=== PATIENT | male | born 1960 | race Caucasian/White ===

== ENCOUNTER 2019-09-09 17:47 | Inpatient (IN) | payer OTHER ==
[~2019-09-09] VITALS: Ht 170.2 cm; Wt 90.7 kg
[2019-09-09] MEDS ORDERED: SODIUM CHLORIDE 0.9% 1000ML 1,000 ML IV STA (17:57)
[2019-09-09] MEDS ORDERED: ONDANSETRON HCL INJ 2MG/ML 2ML 2 MG/ML VIAL IV ONE (18:00)
[2019-09-09] MEDS ORDERED: KETOROLAC TROMETHAMINE 30 MG/ML VIAL IV ONE (18:00)
[2019-09-09] MEDS ORDERED: ACETAMINOPHEN 325 MG TAB PO ONE (18:00)
[2019-09-09] MEDS ORDERED: KETOROLAC TROMETHAMINE 30 MG/ML VIAL ONE (18:27)
[2019-09-09] MEDS ORDERED: ACETAMINOPHEN 325 MG TAB ONE (18:27)
[2019-09-09] MEDS ORDERED: ONDANSETRON HCL INJ 2MG/ML 2ML 2 MG/ML VIAL ONE (18:27)
[2019-09-09] MEDS ORDERED: SODIUM CHLORIDE 0.9% 1000ML 1,000 ML ONE (18:27)
[2019-09-09] MEDS ORDERED: CEFTRIAXONE SOD 2 GM/NS 100 ML 100 ML IV ONE (18:30)
[2019-09-09] MEDS ORDERED: CEFTRIAXONE SOD 1 GM VIAL IV ONE (18:30)
--- NOTE | 2019-09-09 18:50 | Emergency Department Note ---
History of Present Illnes History of Present Illness Chief Complaint: General Medicine Complaints History of Present Illness This is a 58 year old male history of HTN c/o f/c, SOB, chest pain, upper back pain for 2-3 days . Historian: Patient Arrival Mode: Car Web Ui Software Engineer Required: No Onset (how long ago): day(s) (2-3 days) Radiation: back, neck Severity: moderate Duration (how long): day(s) Timing of current episode: intermittent Progression: waxing and waning Relieving factors: none Exacerbating factors: none Associated symptoms: chest pain, cough, fever/chills, headaches, malaise, shortness of breath Treatments prior to arrival: none Past Medical/Family History Physician Review I have reviewed the patient's past medical and family history. Any updates have been documented here. Past Medical History Recent Fever: No Clinical Suspicion of Infectio: Yes Past Medical History: Hypertension, GERD Other Medical History: IBS Social History Smoking Cessation: Former smoker Counseling Performed: No Alcohol Use: None Any Illegal Drug Use: No TB Exposure/Symptoms: No Family History Family history of heart diseas: No Other Any Pre-Existing Lines (PICC,: No Review of Systems Review of Systems Constitutional: chills, fever, malaise, weakness EENTM: no symptoms Cardiovascular: chest pain Respiratory: cough, pain with cough Gastrointestinal: other (chronic abdominal pain) Genitourinary: no symptoms Musculoskeletal: back pain, neck pain Neurological: no symptoms Psychological: no symptoms Endocrine: no symptoms Hematological/Lymphatic: no symptoms Review of other systems All other systems reviewed and negative. Physical Exam Related Data Allergies: Coded Allergies: Penicillins (Verified Allergy, Severe, swelling severe, 09/09/19) Iodinated Contrast Media (Verified Adverse Reaction, Mild, vomiting with fast push only, 09/09/19) pt states that he has vomiting with fast push only, no other rx Vital signs reviewed: Yes Physical Exam CONSTITUTIONAL Constitutional: well-developed, well-nourished, obese HENT HENT: normocephalic, atraumatic, oropharynx clear/moist, nose normal HENT L/R: left ext ear normal, right ext ear normal EYES Eyes: PERRL, conjunctivae normal NECK Neck: ROM normal, supple, other (Negative for Kernig and Brudzinski signs) PULMONARY Pulmonary: effort normal, breath sounds normal CARDIOVASCULAR Cardiovascular: regular rhythm, heart sounds normal, capillary refill normal, normal rate GASTROINTESTINAL Abdominal: soft, nontender, bowel sounds normal, other (obese) GENITOURINARY Genitourinary: exam deferred SKIN Skin: warm, dry MUSCULOSKELETAL Musculoskeletal: ROM normal NEUROLOGICAL Neurological: alert, oriented x 3, no gross motor or sensory deficits PSYCHOLOGICAL Psychological: mood/affect normal, judgement normal Results Laboratory Lab results reviewed: Yes Laboratory comments CBC ok, CMP ok, BNP normal, flu neative. D-dimer slightly elevated, doubt PE clinically, Trop I ok, CKMB ok. Covid 19 pending lactic acid level 2.19 slightly elevated Imaging Imaging results reviewed: Yes Impressions no pneumonia Diagnostics Tests Diagnostic test(s) reviewed: Yes Procedures 12 Lead ECG Interpretation Web Ui Software Engineer: Interpreted by ED physician Date: September 09, 2019 Time: 17:57 Prior BASTER HAND tracings: reviewed Rhythm: sinus rhythm Rate: normal QRS axis: normal ST segments normal: Yes T waves normal: Yes Clinical Impression: normal ECG Critical Care Time Subsequent provider I assumed direction of critical care for this patient from another provider of my specialty. Assessment & Plan Assessment & Plan Problems: (1) Sepsis (2) Chest pain (3) SOB (shortness of breath) (4) Fever Reassessment Reassessment comfortable, no SOB, will place in observation since pt met criteria for moderate to sever sepsis. case discussed with Dr Holt volume reassessment done, pt is not in septic shock, he does not need IV fluid at 30cc/kg as per sepsis protocol. He is not coughing at all for all the time he is here and he will wear face mask so I do not think he need to be on droplet isolation Depart Disposition: ADMITTED Home Meds Reported Medications Multivitamin (MULTI-VITAMIN DAILY) 1 Each Tablet, DAILY 09/09/19 Fexofenadine Hcl (JOSÉ ALLERGY) 60 Mg Tablet, DAILY@0600 THERAPEUTICALLY SUBSTITUTED WITH CLARITIN 10MG 09/09/19 Bifidobacterium Infantis (ALIGN) 4 Mg Capsule 09/09/19 Atenolol (ATENOLOL) 50 Mg Tablet, 25 MG PO DAILY 09/09/19 Famotidine (FAMOTIDINE) 20 Mg Tab, 20 MG PO BID, #30 TAB 09/09/19 Hyoscyamine Sulfate (HYOSCYAMINE SULFATE) 0.375 Mg Tab.er.12h, 0.125 MG PO TID PRN for CRAMPS, TAB 09/09/19 Dicyclomine Hcl (DICYCLOMINE HCL) 20 Mg Tablet, 20 MG PO TID, TAB 09/09/19 Medications in the ED Ketorolac Tromethamine 30 mg ONCE ONCE IV ; Start 09/09/19 at 18:00; Stop 09/09/19 at 18:28; Status DC Ondansetron HCl 4 mg ONCE ONCE IV ; Start 09/09/19 at 18:00; Stop 09/09/19 at 18:01 Sodium Chloride 1,000 ml @ 0 mls/hr Q0M STAT IV ; Start 09/09/19 at 17:57; Stop 09/09/19 at 17:58 Acetaminophen 650 mg ONCE ONCE PO ; Start 09/09/19 at 18:00; Stop 09/09/19 at 18:28; Status DC Ceftriaxone Sodium 2 gm ONCE ONCE IV ; Start 09/09/19 at 18:30; Stop 09/09/19 at 18:31; Status UNV Ceftriaxone Sodium 100 ml @ 100 mls/hr ONCE ONCE IV ; Start 09/09/19 at 18:30; Stop 09/09/19 at 19:29 Ondansetron HCl 4 mg STK-MED ONCE .ROUTE ; Start 09/09/19 at 18:27; Stop 09/09/19 at 18:22; Status DC Ketorolac Tromethamine 30 mg STK-MED ONCE .ROUTE ; Start 09/09/19 at 18:27; Stop 09/09/19 at 18:22; Status DC Acetaminophen 650 mg STK-MED ONCE .ROUTE ; Start 09/09/19 at 18:27; Stop 09/09/19 at 18:22; Status DC Sodium Chloride 1,000 ml @ ud STK-MED ONCE .ROUTE ; Start 09/09/19 at 18:27; Stop 09/09/19 at 18:22; Status DC ESTHELA RIBERA MD September 09, 2019 18:50
[2019-09-09] MEDS ORDERED: CEFTRIAXONE SOD 1 GM VIAL ONE (19:05)
[2019-09-09] MEDS ORDERED: FAMOTIDINE20 MG PO (19:08)
[2019-09-09] MEDS ORDERED: DICYCLOMINE HCL20 MG PO (19:08)
[2019-09-09] MEDS ORDERED: MULTI-VITAMIN1 EACH (19:08)
[2019-09-09] MEDS ORDERED: ALIGN4 MG (19:08)
[2019-09-09] MEDS ORDERED: ALLEGRA ALLERGY60 MG (19:08)
[2019-09-09] MEDS ORDERED: ATENOLOL50 MG PO (19:08)
[2019-09-09] MEDS ORDERED: HYOSCYAMINE0.375 MG PO (19:08)
--- NOTE | 2019-09-09 19:08 | Diagnostic Imaging Report ---
EXAMINATION: PA and lateral views of the chest. COMPARISON: None CLINICAL HISTORY: Fever, shortness of breath, chest pain for 3 days DISCUSSION: Lines/tubes: None. Lungs: The lungs are well inflated and grossly clear. There is no evidence of consolidation or pulmonary edema. Pleura: There is no pleural effusion or pneumothorax. Heart and mediastinum: Cardiomediastinal silhouette is unremarkable. Pulmonary vasculature is normal. Bones and soft tissues: No acute bony abnormalities. Mild degenerative changes in the thoracic spine IMPRESSION: No acute cardiopulmonary abnormalities. Signed by: Dr. Roberto Morgan M.D. on 09/09/2019 7:05 PM
--- NOTE | 2019-09-09 19:13 | NUR ---
report to RAMÓN Landis
[2019-09-09] MEDS ORDERED: DIPHENHYDRAMINE HCL INJ 50 MG/ML VIAL IV PRN (19:45)
[2019-09-09] MEDS ORDERED: AZITHROMYCIN 500MG/SOD CHL 0.9% 250ML BAG IV SCH (19:45)
[2019-09-09] MEDS ORDERED: PROMETHAZINE 25MG/ NS 50ML (IV) IV PRN (19:45)
--- OUTSIDE RECORDS SUMMARY | 2019-09-09 20:12 | XMS REPORT ---
Author Author [facility] t Organization [facility] Address [address] [place] [address] [address]. [address] [place] [address] Phone Unavailable Care Team Providers Care [employer] Judge Name Role Phone Edelmira RIBERA Attphys Unavailable Problems This patient has no known problems. Allergies, Adverse Reactions, Alerts This patient has no known allergies or adverse reactions. Social History Social Habit Start Date Stop Date Quantity Comments Source Sex Assigned At [facility] Medications This patient has no known medications. Procedures This patient has no known procedures. Results Test Description Test Time Test Comments Results Result Comments Source CXR 2 VIEW - HOPD 2019-09-09 19:04:00 [place] [address] Patient Name: TARYN MUNOZ PARAS MR #: [id number] : 1960 Age/Sex: 58/M Req #: [id number] Adm Physician: Ordered by: ESTHELA RIBERA MD Report #: [id number] Location: [facility] Room/Bed: Procedure: [id number] HOPD/CXR 2 VIEW - HOPD Exam Date: 09/09/19 Exam Time: 1850 REPORT STATUS: Signed EXAMINATION: PA and lateral views of the chest. COMPARISON: None CLINICAL HISTORY: Fever, shortness of breath, chest pain for 3 days DISCUSSION: Lines/tubes: None. Lungs: The lungs are well inflated and grossly clear. There is no evidence of consolidation or pulmonary edema. Pleura: There is no pleural effusion or pneumothorax. Heart and mediastinum: Cardiomediastinal silhouette is unremarkable. Pulmonary vasculature is normal. Bones and soft tissues: No acute bony abnormalities. Mild degenerative changes in the thoracic spine IMPRESSION: No acute cardiopulmonary abnormalities. Signed by: Dr. Balbina Morgan M.D. on 09/09/2019 7:05 PM Dictated By: BALBINA MORGAN MD 04 Transcribed By: GRETCHEN on 09/09/191904 COPY TO: ESTHELA RIBERA MD
--- OUTSIDE RECORDS SUMMARY | 2019-09-09 20:12 | XMS REPORT | Clinical Summary ---
Author Author [facility] Address Unknown Phone Unavailable Care Team Providers Care Director Integrated Name Role Phone PCP Unavailable Allergies Not on File Medications Not on file Active Problems Not on file Social History Date Tobacco Use Types Packs/Day Years Used Never Assessed Sex Assigned at Date Recorded Not on file Industry Job Start Date Occupation Not on file Not on file Not on file Travel End Travel History Travel Start No recent travel history available. Last Filed Vital Signs Not on file Plan of Treatment Not on file Results Not on fileafter 09/08/2018
[2019-09-09] MEDS ORDERED: PROMETHAZINE 25MG/SOD CHL 0.9% 50 ML IV PRN (20:15)
[2019-09-09] MEDS: AZITHROMYCIN 500MG/NS 250 ML 250 ML IV SCH (20:45)
[2019-09-09] MEDS: SODIUM CHLORIDE 0.9% 1000ML 1,000 ML IV SCH (20:45)
[2019-09-09] MEDS ORDERED: AZITHROMYCIN 500MG/NS 250 ML 250 ML ONE (20:50)
[2019-09-09] MEDS ORDERED: ZOLPIDEM TARTRATE 5 MG TAB PO PRN (21:00)
[2019-09-09] MEDS: FAMOTIDINE 20 MG/2 ML VIAL IV SCH (21:00)
[2019-09-10] VITALS (10 sets, daily range): BP systolic 107–135; BP diastolic 58–76
[2019-09-10] MEDS: SODIUM CHLORIDE 0.9% 1000ML 1,000 ML IV SCH ×3 (00:30→19:45)
[2019-09-10 05:24] LABS: BASOPHILS % 0.5 % (0.0-1.0); EOSINOPHILS % 0.3 % (0.0-6.0); HEMATOCRIT 43.3 % (38.2-49.6); HEMOGLOBIN 14.4 g/dL (14.0-18.0); LYMPHOCYTES # (AUTO) 0.9 (1.0-3.2); LYMPHOCYTES % 14.5 % (18.0-39.1); MEAN CORPUSCULAR HEMOGLOBIN 28.6 pg (28-32); MEAN CORPUSCULAR HGB CONC 33.3 g/dL (31-35); MEAN CORPUSCULAR VOLUME 85.9 fL (81-99); MONOCYTES % 14.8 % (4.4-11.3); NEUTROPHILS # (AUTO) 4.5 (2.1-6.9); NEUTROPHILS % 69.4 % (38.7-80.0); PLATELET COUNT 167 x10e3/uL (140-360); RED BLOOD COUNT 5.04 x10e6/uL (4.3-5.7); RED CELL DISTRIBUTION WIDTH 13.3 % (11.7-14.4)
[2019-09-10 05:51] LABS: CREATINE KINASE 221 IU/L (30-200)
[2019-09-10 06:23] LABS: BLOOD UREA NITROGEN 12 mg/dL (7-26); BUN/CREATININE RATIO 15 (6-25); CALCIUM 8.7 mg/dL (8.4-10.2); CARBON DIOXIDE 23 mmol/L (22-29); CHLORIDE 106 mmol/L (98-107); CREATININE, SERUM 0.82 mg/dL (0.72-1.25); EST GLOMERULAR FILTRATION RATE > 60 ML/MIN (60-); GLUCOSE 103 mg/dL (74-118); SODIUM 138 mmol/L (136-145)
--- NOTE | 2019-09-10 06:35 | NUR ---
CALLED AND SPOKE TO DR HAIDER, PATIENT HAS LOW GRADE FEVER, LET THE MD KNOW PATIENT STATED HE DOES NOT TAKE ANY MEDS FOR FEVER OR PAIN SINCE HAD IBS. NO NEW ORDER OBTAINED.
--- NOTE | 2019-09-10 07:00 | NUR ---
bedside rounds complete no distress noted, updated on poc voiced understanding, denies pain at this time, call light in reach will continue to monitor
--- NOTE | 2019-09-10 08:00 | NUR ---
spoke with dr jenni park: fever, isolation order and consult for Dr. reynoso, orders received, pt with 101 fever pt states he cannot take tylenol or ibuprofen md informed, no new orders at this time, pt given wet rag for head, temperature turned down, will continue to monitor
[2019-09-10] MEDS: FAMOTIDINE 20 MG/2 ML VIAL IV SCH (08:46)
[2019-09-10] MEDS: CEFTRIAXONE SOD 1 GM/NS 50 ML 50 ML IV SCH (08:46)
--- NOTE | 2019-09-10 10:00 | NUR ---
pt transferred to 185 under isolation
--- NOTE | 2019-09-10 11:23 | NUR ---
labs drawn as per ordered
--- NOTE | 2019-09-10 11:24 | NUR ---
consult [id number]
[2019-09-10 11:43] LABS: CREATINE KINASE 228 IU/L (30-200)
[2019-09-10] MEDS ORDERED: HYOSCYAMINE 0.375 MG TABCR PO PRN (12:15)
[2019-09-10] MEDS: LORATADINE 10 MG TAB PO SCH (12:15)
[2019-09-10] MEDS ORDERED: HYOSCYAMINE 0.125 MG TAB PO PRN (13:30)
--- NOTE | 2019-09-10 13:40 | NUR ---
report called to receiving nurse, pt transferred to rm 203 with all belongings, pt left in stable condition
--- NOTE | 2019-09-10 14:00 | NUR ---
pt arrived to unit resp even and unlabored, no distress noted, pt vital signs stable, pt oriented to room and call light.
--- NOTE | 2019-09-10 14:49 | NUR ---
call to Dr. Holt about pt temperature, 102.3 pt is aware and doesn't want Tylenol or ibuprofen. Dr. Holt was notified.
--- NOTE | 2019-09-10 15:10 | NUR ---
retake of pt temperature 101.1 pt alert resp even and unlabored, no c/o pain, pt states he cant take Tylenol nor ibuprofen, and he is trying to reach his regular Doctor to see if he van take Tylenol. pt states its because of his IBS. will cont. to monitor.
[2019-09-10] MEDS: DICYCLOMINE HCL 20 MG TAB PO SCH ×2 (16:25→20:50)
[2019-09-10] MEDS: FAMOTIDINE 20 MG TAB PO SCH (16:25)
--- NOTE | 2019-09-10 18:12 | Diagnostic Imaging Report ---
Perfusion Lung Scan NOTE: Lung ventilation studies with xenon are not being performed per the recommendation of the Society of Nuclear Medicine and Molecular Imaging. It is not possible to be certain that the ventilation system is adequately disinfected. Ventilation studies with Tc-99m DTPA particles is contraindicated because the delivery by nebulization generates too many water droplets from the patient's airway. Clinical Information: 58 M with CP, fever, sepsis, SOB. Comparison: Chest radiograph 09/09/2019 Discussion: Ventilation images were not obtained. See note above. Perfusion images of the lungs were obtained in multiple projections following intravenous administration of approximately 6.4 mCi of Tc-99m MAA. Distribution of tracer appears physiologic throughout the lungs. There are no segmental perfusion defects of any size. The cardiomediastinal silhouette is unremarkable. Impression: Normal perfusion lung scan. Scan findings represent a VERY LOW probability for acute pulmonary embolic disease based on the PIOPED II criteria. Signed by: Dr. Josselin Mooney M.D. on 09/10/2019 6:08 PM
--- NOTE | 2019-09-10 18:36 | Consultation ---
DATE OF CONSULTATION: HISTORY OF PRESENT ILLNESS: Mr. Zhou is a very pleasant 58-year-old, no past medical history, comes into the emergency room with some chest discomfort, not feeling well. He has been sick for a couple of weeks. No specific fever, but he felt feverish, exertional shortness of breath. No specific trauma, came to emergency room. In emergency room he has been evaluated. His COVID-19 came back negative. His white count was 6.49, hemoglobin 14, hematocrit of 43. Sodium 138, potassium 4.0. The patient was seen and examined. Discussed with Internal Medicine. Discussed with medical team. REVIEW OF SYSTEMS: Otherwise unremarkable. PHYSICAL EXAMINATION: GENERAL: He is currently alert, oriented, does not seem in acute distress. VITAL SIGNS: Stable. Currently afebrile. HEENT: He is not icteric. NECK: Supple. Chest few crackles bilateral. COR: S1 and S2. No S3, S4, or murmur. ABDOMEN: Soft. Bowel sounds present. No tenderness. EXTREMITIES: No edema. SKIN: No rash. IMPRESSION: Shortness of breath, cough, chest x-ray is negative. Concern pneumonia active recall versus PE versus cardiac. Recommend to obtain CT of the chest, V/Q to rule out the PE, echocardiogram. We will put the patient on Rocephin and azithromycin. Await blood cultures. Recheck in the morning. Recheck CBC. Further recommendations to follow. MD SPARKLE Dow/LEYLA /[id number]
[2019-09-10] MEDS ORDERED: CEFTRIAXONE SOD 1 GRAM/0.9% SOD CHL 50ML BAG IV SCH (19:00)
--- NOTE | 2019-09-10 19:15 | NUR ---
Bedside nursing report complete with morning nurse. Pt alert and orient. Denies pain at this time. Call light within reach.
--- NOTE | 2019-09-10 19:30 | NUR ---
walking round complete pt stable at shift change.
[2019-09-10] MEDS: AZITHROMYCIN 500MG/NS 250 ML 250 ML IV SCH (20:30)
[2019-09-11] VITALS (8 sets, daily range): BP systolic 106–125; BP diastolic 64–81
[2019-09-11] MEDS: LORATADINE 10 MG TAB PO SCH (06:00)
[2019-09-11] MEDS: SODIUM CHLORIDE 0.9% 1000ML 1,000 ML IV SCH ×3 (06:07→19:23)
--- NOTE | 2019-09-11 06:28 | NUR ---
Filled in patient visitor for. Pt denies any complaints at this time. No acute distress noted.
--- NOTE | 2019-09-11 07:00 | NUR ---
RCD PT AT BED PT IS ALERT AND ORIENTED RESTING ON BED IV PATENT BED LOW AND LOCKED CALL LIGHT IN REACH
[2019-09-11] MEDS: FAMOTIDINE 20 MG TAB PO SCH ×2 (07:30→16:30)
[2019-09-11] MEDS: MULTIVITAMINS/MINERALS TAB PO SCH (09:00)
[2019-09-11] MEDS: CEFTRIAXONE SOD 1 GM/NS 50 ML 50 ML IV SCH (09:00)
[2019-09-11] MEDS: DICYCLOMINE HCL 20 MG TAB PO SCH ×3 (09:00→19:37)
[2019-09-11] MEDS: ATENOLOL 50 MG TAB PO SCH (09:00)
--- NOTE | 2019-09-11 12:13 | Progress Note ---
DATE: SUBJECTIVE: The patient is seen and evaluated. Available labs and notes reviewed. Discussed with the patient, discussed with the nurse. REVIEW OF SYSTEMS: Fever improved per my discussion with the patient , his temperature is about 98 degrees this morning. No nausea, vomiting, fever, chills, chest pain, and shortness of breath has improved. Still has occasional cough. PHYSICAL EXAMINATION: VITAL SIGNS: Temperature 98.7 with a T-max of 103.0 yesterday afternoon about 4 o'clock, also had 102.2 temperature at midnight. Pulse is 74, respirations 16, and blood pressure 120/81. GENERAL: Alert and oriented, in no acute distress. CV: S1, S2. CHEST: Equal expansion. Decreased breath sounds with more diminished on the left. ABDOMEN: Soft and nontender. No distention. HEENT: Moist. No pallor. No JVD. Still has cough during my conversation. MEDICATIONS: The patient is on Rocephin and Zithromax. IMAGING: V/Q scan showed normal perfusion lung scan. Scan finding presents a very low probability for acute pulmonary embolism. Chest x-ray of 09/08 showed no acute cardiopulmonary abnormalities. Microbiology, blood culture 09/08 is negative. Urine culture 09/08 is negative. Recheck blood culture pending. LABORATORY STUDIES: White count of 6.49, hemoglobin 14.4, platelet 167. Sodium 138, potassium 4, creatinine 0.82. Serology; coronavirus PCR 09/09/2019, not detected. ASSESSMENT AND PLAN: Shortness of breath. Chest x-ray is negative concerning pneumonia. V/Q scan is negative. Chest CT is pending. Continue with antibiotic as above. Echocardiogram showed 55% ejection fraction. Trace mitral and tricuspid valve regurgitation. Fever improved clinically. No acute distress. Cultures are all negative so far. A lengthy discussion with the patient, he states he had the same episode back in 1990 and also in March of 1994 that continued till May of 1994 with the same episodes of fever and cough, which workup did not yield any findings. The patient was treated with IV antibiotics at home back then. Currently, monitor the patient clinically and follow with the labs. This case was discussed with Dr. Grant in details. Please refer to chart for more information. Dictated by Alvaro Goldstein PA-C (Al) MD KLAUS Dow/LEYLA /[id number]
--- NOTE | 2019-09-11 12:15 | NUR ---
AC TO RADIOLOGY PAGED DR WATSON TO NOTIFY THAT THE PT IS ALLERGIC TO IODINATED CONTRAST AND LEFT THE MESSAGE
--- NOTE | 2019-09-11 13:10 | NUR ---
DR WATSON RETURNED THE CALL AND GOT THE ORDER TO DO CT WITHOUT CONTRAST
--- NOTE | 2019-09-11 14:50 | NUR ---
PT C/O HEADACHE PAGED AND NOTIFIED DR HAIDER GOT NEW ORDERS
[2019-09-11] MEDS ORDERED: ACETAMINOPHEN 1000 MG/100 ML IV NR (15:01)
--- NOTE | 2019-09-11 15:13 | Progress Note ---
DATE: 09/11/2019 ENGRAVER RUBBER: Dr. Grant with Infectious Disease. CHIEF COMPLAINT: Fever and chills for 2 to 3 days. SUBJECTIVE: The patient reports his fever is improving, he has dry cough. Shortness of breath is improved. He reports headache. No nausea, vomiting, chest pain. PHYSICAL EXAMINATION: VITAL SIGNS: Temperature 98.2, pulse is 60, respirations 16, blood pressure 110/74, pulse ox is 98% on room air. GENERAL: No acute distress. HEENT: Normocephalic, atraumatic. NECK: Supple. CARDIOVASCULAR: Regular rate and rhythm. LUNGS: Decreased breath sounds. ABDOMEN: Soft and nontender. NEUROLOGIC: Alert, awake, oriented x3. MUSCULOSKELETAL: Moves all extremities. No edema. SKIN: Intact. IMAGING: V/Q scan of the lung, normal position. Lung scan with very low probability for PE, which is negative. IMPRESSION: 1. Viral syndrome. Fever is improving. ID on the case. Blood and urine cultures are negative so far. Continue on Rocephin and azithromycin per ID and IV fluid hydration. 2. Hypertension, currently stable on his home dose of atenolol. 3. Mild rhabdomyolysis, CK is 221. Kidney function within normal limits. Continue IV fluids and rest. We will repeat CK level tomorrow morning. 4. Gastrointestinal, deep venous thrombosis prophylaxis. Not indicated as the patient is ambulatory. Dictated by STACI Javier Nani Holt MD MY/MODL /[id number] Pt seen and examined. Agree with the findings and plan as documented by STACI Cortes. ADRIEND
--- NOTE | 2019-09-11 16:56 | Diagnostic Imaging Report ---
CT of the abdomen and pelvis. Comparison: None Clinical History: Fever, sepsis, shortness of breath Technique: Helical CT scan of the abdomen and pelvis was performed. Intravenous contrast administration was not utilized. Oral contrast administration was not utilized. Coronal and sagittal reconstructions were generated from the raw data. Multiple images were submitted for interpretation. This exam was performed according to our departmental dose-optimization program which includes automated exposure control, adjustment of the mA and/or kV according to patient size Discussion: Inferior chest: Minimal dependent atelectasis. No effusion. No pneumothorax seen. Heart and pericardium unremarkable. Coronary artery calcification. Liver: Unremarkable Spleen: Unremarkable. A small splenule at the anterior pole of the spleen. Pancreas: Unremarkable. Tiny speck of calcification in the pancreatic tail. Biliary tree and gallbladder: Unremarkable Adrenal glands: Unremarkable Kidneys and ureters: Unremarkable Vasculature: Minimal atherosclerotic calcification Lymph nodes: No lymphadenopathy Bowel: Unremarkable Pelvis: Urinary bladder is unremarkable. Prostate unremarkable. Seminal vesicles unremarkable. Pelvic wall unremarkable. Peritoneum: Unremarkable Perineal compartments: unremarkable. Fluid: No free fluid Bones: Unremarkable Body wall: Unremarkable Impression: Limited CT without contrast. No significant abnormality seen to account for the patient's fever and sepsis on this exam. Signed by: Lauro Clements MD on 09/11/2019 4:52 PM
--- NOTE | 2019-09-11 18:50 | NUR ---
PT RESTING ON BED BED SIDE REPORT GIVEN TO ONCOMING NURSE
[2019-09-11] MEDS: AZITHROMYCIN 500MG/NS 250 ML 250 ML IV SCH (19:37)
[2019-09-11] MEDS: KETOROLAC TROMETHAMINE 30 MG/ML VIAL IV PRN (22:21)
[2019-09-12] VITALS (7 sets, daily range): BP systolic 92–103; BP diastolic 57–75
[2019-09-12] MEDS: SODIUM CHLORIDE 0.9% 1000ML 1,000 ML IV SCH ×2 (02:14→11:45)
[2019-09-12] MEDS: LORATADINE 10 MG TAB PO SCH (04:50)
[2019-09-12] MEDS: KETOROLAC TROMETHAMINE 30 MG/ML VIAL IV PRN (04:54)
[2019-09-12 06:33] LABS: BASOPHILS % 0.5 % (0.0-1.0); EOSINOPHILS # (AUTO) 0.3 (0.0-0.4); EOSINOPHILS % 5.7 % (0.0-6.0); HEMATOCRIT 39.8 % (38.2-49.6); HEMOGLOBIN 13.2 g/dL (14.0-18.0); LYMPHOCYTES # (AUTO) 1.2 (1.0-3.2); LYMPHOCYTES % 21.4 % (18.0-39.1); MEAN CORPUSCULAR HEMOGLOBIN 28.4 pg (28-32); MEAN CORPUSCULAR HGB CONC 33.2 g/dL (31-35); MEAN CORPUSCULAR VOLUME 85.6 fL (81-99); MONOCYTES % 16.8 % (4.4-11.3); NEUTROPHILS # (AUTO) 3.1 (2.1-6.9); NEUTROPHILS % 55.2 % (38.7-80.0); PLATELET COUNT 160 x10e3/uL (140-360); RED BLOOD COUNT 4.65 x10e6/uL (4.3-5.7); RED CELL DISTRIBUTION WIDTH 13.2 % (11.7-14.4)
--- NOTE | 2019-09-12 06:38 | NUR ---
BSSR GIVEN TO ONCOMING SHIFT VERBALLY, NO DISTRESS NOTED, CALL LIGHT WITHIN REACH UPDATED WITH CURRENT LABS AND PLAN OF CARE
--- NOTE | 2019-09-12 07:00 | NUR ---
RCD PT AT BED PT IS ALERT AND ORIENTED RESTING ON BED IV PATENT BED LOW AND LOCKED CALL LIGHT IN REACH
[2019-09-12 07:05] LABS: ANION GAP 12.5 mmol/L (8-16); BLOOD UREA NITROGEN 11 mg/dL (7-26); BUN/CREATININE RATIO 16 (6-25); CALCIUM 8.3 mg/dL (8.4-10.2); CARBON DIOXIDE 23 mmol/L (22-29); CHLORIDE 108 mmol/L (98-107); CREATINE KINASE 207 IU/L (30-200); CREATININE, SERUM 0.68 mg/dL (0.72-1.25); EST GLOMERULAR FILTRATION RATE > 60 ML/MIN (60-); GLUCOSE 84 mg/dL (74-118); POTASSIUM 3.5 mmol/L (3.5-5.1); SODIUM 140 mmol/L (136-145)
[2019-09-12] MEDS: FAMOTIDINE 20 MG TAB PO SCH (07:30)
[2019-09-12] MEDS: MULTIVITAMINS/MINERALS TAB PO SCH (08:53)
[2019-09-12] MEDS: DICYCLOMINE HCL 20 MG TAB PO SCH (08:53)
[2019-09-12] MEDS: ATENOLOL 50 MG TAB PO SCH (08:53)
[2019-09-12] MEDS: CEFTRIAXONE SOD 1 GM/NS 50 ML 50 ML IV SCH (08:53)
--- NOTE | 2019-09-12 11:13 | Progress Note ---
DATE: SUBJECTIVE: The patient is seen and evaluated. Available labs and notes reviewed. Discussed with Dr. Grant. REVIEW OF SYSTEMS: Feels better. No nausea, vomiting, fever, chills, chest pain, shortness of breath, headache, or rash. PHYSICAL EXAMINATION: VITAL SIGNS: Temperature 97.8, pulse is 62, respirations 16, and blood pressure 103/72. GENERAL: Alert and oriented, no acute distress. CV: S1 and S2. CHEST: Equal expansion. Clear to auscultation. No acute distress. ABDOMEN: Soft and nontender. No distention. HEENT: Moist. No JVD. EXTREMITIES: Moves all. No significant edema. MEDICATIONS: Medication list reviewed. The patient is on Rocephin and Zithromax from Infectious Disease point of view. LABORATORY STUDIES: White count of 5.66, hemoglobin 13.2, and platelet 160. Sodium 140, potassium 3.5, and creatinine 0.68. Serology; coronavirus PCR not detected on 09/09/2019. Cultures; blood culture and urine cultures negative. RADIOLOGY STUDIES: CT of abdomen and pelvis showed no significant abnormalities to account for the patient's fever and sepsis on CT of abdomen and pelvis. ASSESSMENT AND PLAN: 1. Fever-cultures negative. Chest x-ray, no acute cardiopulmonary. CT abdomen and pelvis negative. V/Q scan negative. No leukocytosis. Creatinine 0.68. Serology; coronavirus PCR not detected on 09/09/2019. Echocardiogram showed 55% ejection fraction with trace mitral and tricuspid valve regurgitation. 2. Debility and weakness, improved. 3. Chills, resolved. 4. Shortness of breath, resolved. 5. Available labs and notes reviewed. Continue to monitor the patient clinically and follow with the labs. Overall significant improvement. No acute distress. Please refer to chart for more information. MD SPARKLE Dow/LEYLA /[id number]
--- NOTE | 2019-09-12 12:42 | NUR ---
patient is seen and examined Patient is doing well discussed with him the finding including CAT scan laboratory data His physical examination is current currently alert oriented does not seem to be in acute distress vital stable afebrile HEENT is Dr. colette campa chest clear bilateral heart S1-S2 no S3-S4 murmur abdomen soft bowel sound present no tenderness extremities no edema skin there is no rash discussed with the case management discussed with internal medicine discussed with the patient Impression I think the patient had fever and sepsis on admission probably viral So far all workup is negative could be bacterial but all cultures are negative to be in a safe side we will discharge patient with Levaquin 500 mg by mouth daily for 7 days follow-up with me in 2 weeks
[2019-09-12] MEDS ORDERED: LEVAQUIN500 MG PO (13:49)
--- NOTE | 2019-09-12 15:15 | NUR ---
PT WENT HOME IN SAFE CONDITION WITH HIS
[2019-09-12] MEDS ORDERED: AZITHROMYCIN 250 MG TAB PO SCH (20:00)
--- NOTE | 2019-09-13 06:41 | Discharge Summary ---
PRIMARY CARE PHYSICIAN: Shobha Stevens at the [facility]. FINAL DIAGNOSES: 1. Fever due to viral syndrome. 2. Hypertension. 3. Mild rhabdomyolysis. NURSE TRANSITION: Dr. Grant with Infectious Disease. PROCEDURES: None. HISTORY: Per HPI. HOSPITAL COURSE: This is a 58-year-old male with past medical history of hypertension, who presented with fever and chills for 2 to 3 days. Labs were unremarkable, blood cultures negative. Urine culture was also negative. Infectious Disease was consulted for further evaluation. Coronavirus was not detected. Chest x-ray and V/Q scan were negative for acute abnormalities. CT of abdomen and pelvis was also negative for any significant abnormalities. Echocardiogram with EF of 50% to 55% ejection fraction with trace mitral and tricuspid valve regurgitation with no vegetation noted. He was started on azithromycin and Rocephin, which his fever has improved times greater than 24 hours. He is feeling much better, no pain, nausea, or vomiting. We will discharge home on Levaquin for five days. Followup with primary care physician and Dr. Grant in 1 to 2 weeks. PHYSICAL EXAMINATION: VITAL SIGNS: Temperature 97.6, pulse is 51, respirations 19, blood pressure 96/62, pulse ox is 100% on room air. GENERAL: No acute distress. HEENT: Normocephalic and atraumatic. NECK: Supple. LUNGS: Clear. CARDIOVASCULAR: Regular rate and rhythm. GI: Soft and nontender. NEURO: Alert, awake, and oriented x3. CONDITION AT DISCHARGE: Improved and stable. DISCHARGE MEDICATIONS: Please see medication reconciliation list. FOLLOWUP: PCP and Dr. Grant in 1 to 2 weeks. Sooner if symptoms reoccur. TIME SPENT: Total time of discharge 35 minutes. Dictated by STACI Javier Yiching Chivo Holt MD MY/MODL /[id number] cc: [facility] Pt seen and examined on 09/12/19. Agree with the findings and plan as documented by STACI Cortes. MTDD
== END 2019-09-12 15:15 | disposition home or self-care (01) | DRG 866 ==
LOC: FSED 17:47 → ERHOLD 19:42 → IMCU 23:51 → OBSVTOIN 09-10 11:52 → MED/SURG2 09-10 14:11
PROVIDERS: ADMIT Internal Medicine; ATTEND Internal Medicine
DX: B34.9 Viral infection, unspecified (principal); M62.82 Rhabdomyolysis; R07.9 Chest pain, unspecified; I10 Essential (primary) hypertension; M54.89 Other dorsalgia; K21.9 Gastro-esophageal reflux disease without esophagitis; Z87.891 Personal history of nicotine dependence; Z88.0 Allergy status to penicillin; Z91.041 Radiographic dye allergy status; Z82.49 Family history of ischemic heart disease and other diseases of the circulatory system; Z11.59 Encounter for screening for other viral diseases; Z77.9 Other contact with and (suspected) exposures hazardous to health
CPT/HCPCS: 36415; 71046; 74176; 78597; 80048; 80076; 81003; 82550; 82553; 82948; 83605; 83880; 84484; 85025; 85379; 87040; 87086; 87400; 87635; 93005; 93306; 96361; 99284; A9540; G0378; J0456; J0696; J1200; J1885; J2405; J7030

== ENCOUNTER 2019-10-21 21:56 | Emergency (ER) | payer OTHER ==
[~2019-10-21] VITALS: Ht 172.7 cm; Wt 86.2 kg
[~2019-10-21 21:56] MED LIST: ALIGN4 MG; ALLEGRA ALLERGY60 MG; ATENOLOL50 MG PO; DICYCLOMINE HCL20 MG PO; FAMOTIDINE20 MG PO; HYOSCYAMINE0.375 MG PO; LEVAQUIN500 MG PO; MULTI-VITAMIN1 EACH
[2019-10-21] MEDS ORDERED: HYDROCODONE/APAP 7.5MG-325MG 1 EA TAB PO PRN (22:15)
[2019-10-21] MEDS ORDERED: ASPIRIN 81 MG CHEW TAB PO ONE (22:15)
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
--- NOTE | 2019-10-22 | Diagnostic Imaging Report ---
SHOULDER LEFT COMPLETE - 3 views HISTORY: Pain. COMPARISON: None available. FINDINGS: Bones: Acute displaced fracture through the mid clavicle with 1.7 cm of bony overlap. Joints: The joint spaces are maintained. Soft tissues: The soft tissues appear unremarkable. IMPRESSION: Acute displaced fracture of the mid left clavicle. No joint dislocation. Signed by: Brody Dudley MD on 10/21/2019 11:56 PM
--- NOTE | 2019-10-22 | Diagnostic Imaging Report ---
WRIST COMPLETE LEFT - 3 views HISTORY: Pain. COMPARISON: None available. FINDINGS: Bones: No acute displaced fracture. Osseous alignment is within normal limits. Joints: The joint spaces are well-maintained. Soft tissues: The soft tissues appear unremarkable. IMPRESSION: No acute radiographic abnormality. Signed by: Brody Dudley MD on 10/21/2019 11:57 PM
--- NOTE | 2019-10-22 | Diagnostic Imaging Report ---
Bilateral knees 3 views each - 3 view(s) each HISTORY: Pain. COMPARISON: None available. FINDINGS: RIGHT: No displaced fracture. The osseous alignment is within normal limits. The joint spaces are well-maintained. The soft tissues appear unremarkable. LEFT: No displaced fracture. The osseous alignment is within normal limits. The joint spaces are well-maintained. The soft tissues appear unremarkable. IMPRESSION: No acute radiographic abnormality. Signed by: Brody Dudley MD on 10/21/2019 11:57 PM
--- NOTE | 2019-10-22 00:01 | Diagnostic Imaging Report ---
ANKLE 3+ VIEWS LEFT - 3 views HISTORY: Pain. COMPARISON: None available. FINDINGS: Bones: No acute displaced fracture. Osseous alignment is within normal limits. Joints: The joint spaces are well-maintained. Soft tissues: Mild soft tissue swelling about the ankle. IMPRESSION: No fracture. Signed by: Brody Dudley MD on 10/21/2019 11:58 PM
[2019-10-22] MEDS ORDERED: FENTANYL 50 MCG/HR PATCH TOP SCH (03:00)
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
== END 2019-10-22 03:30 | disposition home or self-care (01) ==
LOC: ER 10-22 00:33
DX: M25.512 Pain in left shoulder (principal); S42.002A Fracture of unspecified part of left clavicle, initial encounter for closed fracture; V43.52XA Car driver injured in collision with other type car in traffic accident, initial encounter; Y92.488 Other paved roadways as the place of occurrence of the external cause; I10 Essential (primary) hypertension; E78.5 Hyperlipidemia, unspecified; K21.9 Gastro-esophageal reflux disease without esophagitis
CPT/HCPCS: 70450; 72125; 99283